=== PATIENT | male | born 1950 | race Two or more races ===

== ENCOUNTER 2018-09-13 09:39 | Emergency (ER) | payer MEDICARE, MEDICAID ==
[2018-09-13 10:32] LABS: ALB/GLOB RATIO 1.2 (1.0-1.8); ALKALINE PHOSPHATASE 45 U/L (34-104); BILIRUBIN,TOTAL 0.7 mg/dL (0.3-1.0); BUN - UREA NITROGEN 13 mg/dL (7-25); CALCIUM SERUM 9.5 mg/dL (8.6-10.3); CARBON DIOXIDE 29.7 mEq/L (21.0-31.0); CHLORIDE 100 mEq/L (98-107); CREATININE - SERUM 1.2 mg/dL (0.7-1.3); GFR AFRICAN-AMERICAN > 60.0 ml/min (>90); GFR NON AFRICAN-AMERICAN > 60.0 ml/min; GLUCOSE 101 mg/dL (70-105); POTASSIUM SERUM 3.7 mEq/L (3.5-5.1); SGOT 20 U/L (13-39); SGPT/ALT 17 U/L (7-52); SODIUM SERUM 136 mEq/L (136-145); TOTAL PROTEIN,SERUM 7.3 gm/dL (6.0-8.3)
[2018-09-13 11:02] LABS: URINE SOURCE CLEAN C
[2018-09-13 11:09] LABS: URINE BILIRUBIN NEGATIVE (NEGATIVE); URINE BLOOD TRACE (NEGATIVE); URINE GLUCOSE (UA) NEGATIVE (NEGATIVE); URINE KETONE NEGATIVE (NEGATIVE); URINE LEUKOCYTE ESTERASE NEGATIVE (NEGATIVE); URINE MICROSCOPIC INDICATED? YES; URINE NITRATE NEGATIVE (NEGATIVE); URINE PH 7.5 (4.6 - 8.0); URINE PROTEIN NEGATIVE (NEGATIVE); URINE UROBILINOGEN 0.2 E.U./dL (0.2 - 1.0)
--- NOTE | 2018-09-13 11:11 | ED Physician Chart ---
ED Chief Complaint/HPI - Patient Information Date Seen:: 09/13/18 Time Seen:: 10:00 Chief Complaint:: chest congestion and sore throat History of Present Illness:: this is a 68 yo hypertensive male with concerned and a sore throat and chest congestion. his symptoms started four days ago with cold symptoms. Allergies:: Allergies Allergy/AdvReac Type Severity Reaction Status Date / Time No Known Allergies Allergy Verified 09/13/18 09:48 Vitals:: Vital Signs - 8 hr 09/13/18 09:48 Temp 98.3 F HR 63 RR 16 BP 141/90 O2 Sat % 99 Historian:: Patient Review:: Nurse's Note Reviewed ED Review of Systems - Review of Systems General/Constitutional: Fever, No chills, No weight loss, No weakness, No diaphoresis, No edema, No loss of appetite Skin: No skin lesions, No rash, No bruising Head: No headache, No light-headedness Eyes: No loss of vision, No pain, No diplopia ENT: No earache, No nasal drainage, Sore throat, No tinnitus Neck: No neck pain, No swelling, No thyromegaly, No stiffness, No mass noted Cardio Vascular: No chest pain, No palpitations, No PND, No orthopnea, No edema Pulmonary: SOB, Cough, No sputum, No wheezing GI: No nausea, No vomiting, No diarrhea, No pain, No melena, No hematochezia, No constipation, No hematemesis G/U: No dysuria, No frequency, No hematuria Musculoskeletal: No bone or joint pain, No back pain, No muscle pain Endocrine: No polyuria, No polydipsia Psychiatric: No prior psych history, No depression, No anxiety, No suicidal ideation Hematopoietic: No bruising, No lymphadenopathy Allergic/Immuno: No urticaria, No angioedema Neurological: No syncope, No focal symptoms, No weakness, No paresthesia, No headache, No seizure, No dizziness, No confusion, No vertigo ED Past Medical History - Past Medical History Obtainable: Yes Past Medical History: HTN Family History: None Social History: Non Smoker, No Alcohol, No Drug Use, Surgical History: None Psychiatricy History: None Medication: Reviewed Family Medical History - Family Member Mother History Unknown: Yes Living Status: Hx Family Hypertension: Yes ED Physical Exam - Physical Examination General/Constitutional: Awake, Well-developed, well-nourished, Alert, No distress, GCS 15, Non-toxic appearing, Ambulatory Head: Atraumatic Eyes: Lids, conjuctiva normal, PERRL, EOMI Skin: Nl inspection, No rash, No skin lesions, No ecchymosis, Well hydrated, No lymphadenopathy ENMT: External ears, nose nl, Nasal exam nl, Lips, teeth, gums nl, Oropharynx nl (posterior pharynx is red and swollen) Neck: Nontender, Full ROM w/o pain, No JVD, No nuchal rigidity, No bruit, No mass, No stridor Respiratory: Nl effort/Exclusion, Clear to Auscultation, No Wheeze/Rhonchi/ Rales (there are bilateral rhonchi heard) Cardio Vascular: RRR, No murmur, gallop, rubs, NL S1 S2 GI: No tenderness/rebounding/guarding, No organomegaly, No hernia, Normal BS's, Nondistended, No mass/bruits, No McBurney tenderness : No CVA tenderness Extremities: No tenderness or effusion, Full ROM, normal strength in all extremities, No edema, Normal digits & nails Neuro/Psych: Alert/oriented, DTR's symmetric, Normal sensory exam, Normal motor strength, Judgement/insight normal, Mood normal, Normal gait, No focal deficits Misc: Normal back, No paraspinal tenderness ED Labs/Radiology/EKG Results - Lab Results Results: Laboratory Tests 09/13/18 09/13/18 10:05 10:05 Sodium 136 Potassium 3.7 Chloride 100 Carbon Dioxide 29.7 Anion Gap 10.0 BUN 13 Creatinine 1.2 Est GFR ( Amer) > 60.0 Est GFR (Non-Af Amer) > 60.0 BUN/Creatinine Ratio 10.8 Glucose 101 Whole Bld Lactic Acid 1.06 Calcium 9.5 Total Bilirubin 0.7 AST 20 ALT 17 Alkaline Phosphatase 45 Total Protein 7.3 Albumin 4.0 L Globulin 3.3 Albumin/Globulin Ratio 1.2 Abnormal Lab Results 09/13/18 09/13/18 09/13/18 10:05 10:05 10:05 Sodium 136 Potassium 3.7 Chloride 100 Carbon Dioxide 29.7 Anion Gap 10.0 BUN 13 Creatinine 1.2 Est GFR ( Amer) > 60.0 Est GFR (Non-Af Amer) > 60.0 BUN/Creatinine Ratio 10.8 Glucose 101 Whole Bld Lactic Acid 1.06 Calcium 9.5 Total Bilirubin 0.7 AST 20 ALT 17 Alkaline Phosphatase 45 Troponin I 0.01 Total Protein 7.3 Albumin 4.0 L Globulin 3.3 Albumin/Globulin Ratio 1.2 Urine Color Urine Clarity Urine pH Ur Specific [place] Urine Protein Urine Glucose (UA) Urine Ketones Urine Blood Urine Nitrate Urine Bilirubin Urine Urobilinogen Ur Leukocyte Esterase 09/13/18 10:48 Sodium Potassium Chloride Carbon Dioxide Anion Gap BUN Creatinine Est GFR ( Amer) Est GFR (Non-Af Amer) BUN/Creatinine Ratio Glucose Whole Bld Lactic Acid Calcium Total Bilirubin AST ALT Alkaline Phosphatase Troponin I Total Protein Albumin Globulin Albumin/Globulin Ratio Urine Color YELLOW Urine Clarity CLEAR Urine pH 7.5 Ur Specific [place] 1.015 Urine Protein NEGATIVE Urine Glucose (UA) NEGATIVE Urine Ketones NEGATIVE Urine Blood TRACE Urine Nitrate NEGATIVE Urine Bilirubin NEGATIVE Urine Urobilinogen 0.2 Ur Leukocyte Esterase NEGATIVE - Radiology Results Results: chest x-ray = no infiltrates noted - EKG Interpretations EKG Time:: 10:35 Rate & Rhythm: rate = 62, sinus [place]: left axis ED Assessment - Assessment General Assessment: bronchitis pharyngitis ED Septic Shock - . Is Septic Shock (SBP<90, OR Lactate>4 mmol\L) present?: No - <6hrs of presentation: Vital Signs: Vital Signs - 8 hr 09/13/18 09:48 Temp 98.3 F HR 63 RR 16 BP 141/90 O2 Sat % 99 ED Reassessment (Disposition) - Reassessment Reassessment Condition:: Improved - Diagnosis Diagnosis:: bronchitis pharyngitis - Aftercare/Follow up Instructions Aftercare/Follow-Up Instructions:: Counseled pt regarding lab results/diagnosis & need follow up, Refer to Discharge Instructions, Counseled pt & family regarding lab results/diagnosis & need follow up Medication Prescribed:: [id number] and prednisone - Patient Disposition Discharge/Transfer:: Home Condition at Disposition:: Unchanged
[2018-09-13 11:20] LABS: URINE CLARITY CLEAR (CLEAR); URINE COLOR YELLOW
[2018-09-13 12:09] LABS: URINE EPITHELIAL CELLS FEW /lpf (FEW); URINE RBC 0-2 /hpf (0-5); URINE WBC 0-2 /hpf (0-5)
[2018-09-13 12:10] LABS: URINE BACTERIA FEW /hpf (NONE SEEN)
[2018-09-13 12:38] LABS: HEMATOCRIT 46.9 % (41.0-60); HEMOGLOBIN 15.7 gm/dL (12-16); WHITE BLOOD COUNT 3.5 Th/cmm (4.8-10.8)
[2018-09-13 12:39] LABS: MEAN CELL VOLUME 85.3 fl (80-99); MEAN CORPUSCULAR HEMOGLOBIN 28.5 pg (27.0-31.0); MEAN CORPUSCULAR HGB CONC 33.4 pg (28.0-36.0); PLATELET COUNT 148 Th/cmm (150-400); RED CELL DISTRIBUTION WIDTH 12.4 % (11.5-20.0)
[2018-09-13 13:17] LABS: BAND NEUTROPHILE 0 % (0-10); BASOPHIL 0 % (0-3); EOSINOPHIL 1 % (0-5); LYMPHOCYTE 35 % (20-50); MONOCYTE 10 % (2-10); NEUTROPHILS 54 % (40-80)
[2018-09-13 13:18] LABS: PLATELET ESTIMATE SLIGHT DECREASED (NORMAL)
--- NOTE | 2018-09-13 16:43 | Diagnostic Imaging Report ---
CHEST X-RAY: AP view INDICATION: Cough, congestion COMPARISON: None FINDINGS: There is mild elevation of the right diaphragm. Chronic changes are seen with increased bibasilar lung markings. No focal consolidation or effusion. Heart size is normal. Degenerative changes of the spine are noted. IMPRESSION: Increased bibasilar lung markings which may be due to atelectasis, however, faint infiltrate of the left base cannot be excluded. Clinical correlation and follow-up recommended. Short-term follow-up PA and lateral views may also be obtained for further assessment.
== END 2018-09-13 11:45 | disposition home or self-care (01) ==
LOC: ER 09:39
DX: J40 Bronchitis, not specified as acute or chronic (principal); J02.9 Acute pharyngitis, unspecified; I10 Essential (primary) hypertension
CPT/HCPCS: 36415-UA; 71045-TC; 80053-TC; 81001-TC; 83605; 84443-TC; 84484-TC; 85007-TC; 85025-TC; 93005